=== PATIENT | male | born 1955 | race Caucasian/White ===

== ENCOUNTER 2021-12-19 11:52 | Emergency (ER) | payer MEDICARE, SELFPAY ==
--- NOTE | 2021-12-19 11:59 | PC.NURSE ---
As I went to triage pt, was on her cell phone. Stated that the Oncologist had called and they are going to see pt this afternoon instead of him being seen in the ED today. Pt LWBS.
[2021-12-19 12:01] VITALS: BP 0/0; PULSE 0; RESP 0; TEMP -17.7; TEMP 0; O2SAT 0
== END 2021-12-19 12:02 | disposition left against medical advice (07) ==
LOC: ER 11:56
PROVIDERS: Emergency Provider Emergency Medicine
DX: Z53.21 Procedure and treatment not carried out due to patient leaving prior to being seen by health care provider (principal)
CPT/HCPCS: 99211

== ENCOUNTER 2022-01-31 08:00 | Outpatient (RCR) | payer MEDICARE, SELFPAY | END 2022-01-31 08:05 | disposition home or self-care (01) | LOC: PT 08:00 | PROVIDERS: Visit Provider Surgery Surgical Oncology | DX: C44.92 Squamous cell carcinoma of skin, unspecified (principal); I89.0 Lymphedema, not elsewhere classified | CPT/HCPCS: 97110; 97140; 97162; 97164; 97760 ==

== ENCOUNTER → 2022-09-11 10:44 | Outpatient (REF) | payer OTHER, SELFPAY ==
[2022-09-11 11:28] LABS: Basophils % 0.3 % (0.1-2.0); Eosinophils # 0.2 K/mm3 (0.0-0.4); Eosinophils % 2.7 % (0.1-12.0); Hematocrit 30.5 % (42.0-52.0); Hemoglobin 10.1 g/dL (14.1-18.0); Lymphocytes # 0.6 K/mm3 (0.7-4.5); Lymphocytes % 8.2 % (10-50); Mean Corpuscular HGB Conc 33.1 g/dL (31.8-35.4); Mean Corpuscular Hemoglobin 29.2 pg (27.0-31.2); Mean Corpuscular Volume 88.3 fl (80-94); Mean Platelet Volume 7.9 fl (7.4-10.4); Monocytes # 0.5 K/mm3 (0.1-1.0); Neutrophils # 5.7 K/mm3 (1.8-7.8); Neutrophils % 81.8 % (37.0-80.0); Platelet Count 253 K/mm3 (142-424); Red Blood Count 3.46 M/mm3 (4.60-6.20); Red Cell Distribution Width 13.9 % (11.5-17.5); White Blood Count 6.9 K/mm3 (4.8-10.8)
== END ==
LOC: LAB 10:44
PROVIDERS: Visit Provider Family Medicine Hospice and Palliative Medicine
DX: C34.90 Malignant neoplasm of unspecified part of unspecified bronchus or lung (principal)
CPT/HCPCS: 85025